=== PATIENT | female | born 1995 | race Caucasian/White ===

== ENCOUNTER 2018-09-03 20:51 | Emergency (ER) | payer OTHER ==
[2018-09-03 21:00] VITALS: BP 152/70
--- NOTE | 2018-09-03 22:12 | RADIOLOGY REPORT (SQ) ---
EXAM DESCRIPTION: XR NASAL BONES COMPLETED DATE/TME: 09/03/2018 00:00 CLINICAL HISTORY: 22 years, Female, Dog bumped pt in face/nose- nose pain Findings: Nasal bones appear intact. Nasal bony septum is not significantly deviated. Orbits appear intact. No air-fluid levels in the maxillary sinuses. IMPRESSION: No evidence for displaced nasal bone fracture.
--- NOTE | 2018-09-03 23:00 | ER Document Report ---
HPI - HPI Patient complains to provider of: Nose injury Pain Level: 3 Context: Patient is a 22-year-old female presenting to the emergency department complaining of being head butted by her 9-month-old [place]. Patient states immediately her nose began with a slight epistaxis and she had pain. Patient denies LOC or vomiting. Past medical history: None Medications: None Allergies: Sulfa Patient denies cigarette smoking, illicit drug use, admits to occasional EtOH use. Patient is declining any Tylenol or Motrin administration at this time. Patient states she can handle the pain. Past Medical History - General Information source: Patient - Social History Smoking Status: Never Smoker Lives with: Family Family History: Reviewed & Not Pertinent Vertical Provider Document - CONSTITUTIONAL Agree With Documented VS: Yes Notes: GENERAL: Alert, interacts well. No acute distress. HEAD: Normocephalic, atraumatic. EYES: Pupils equal, round, and reactive to light. Extraocular movements intact. ENT: Oral mucosa moist, tongue midline. Nares patent scant dried blood, no nasal septal hematoma, TM's intact, no hemotympanum erythema and swelling noted to nasal bridge. NECK: Full range of motion. Supple. Trachea midline. LUNGS: Clear to auscultation bilaterally, no wheezes, rales, or rhonchi. No respiratory distress. HEART: Regular rate and rhythm. No murmur ABDOMEN: Soft, non-tender. Non-distended. Bowel sounds present in all 4 quadrants. EXTREMITIES: Moves all 4 extremities spontaneously. No edema, normal radial and dorsalis pedis pulses bilaterally. No cyanosis. BACK: no cervical, thoracic, lumbar midline tenderness. No saddle anesthesia, normal distal neurovascular exam. NEUROLOGICAL: Alert and oriented x3. Normal speech. cranial nerves II through XII grossly intact PSYCH: Normal affect, normal mood. SKIN: Warm, dry, normal turgor. - INFECTION CONTROL TRAVEL OUTSIDE OF THE [place] IN LAST 30 DAYS: No Course - Re-evaluation Re-evalutation: 09/03/18 22:59 No septal hematoma noted bleeding has stopped at this time. Discussed with patient at bedside x-ray results. Discussed need to follow-up with primary care. Return precautions discussed - Vital Signs Vital signs: Temp Pulse Resp BP Pulse Ox 97.7 F 53 L 18 152/70 H 98 09/03/18 20:58 09/03/18 20:58 11/04/18 20:58 09/03/18 20:58 09/03/18 20:58 Discharge - Discharge Clinical Impression: Nose injury Qualifiers: Encounter type: initial encounter Qualified Code(s): S09.92XA - Unspecified injury of nose, initial encounter Condition: Stable Disposition: HOME, SELF-CARE Additional Instructions: Your x-ray results are negative for fracture. You should take Tylenol and Motrin at home for discomfort. Please return to the emergency room for any other worsening symptoms. Please follow-up with your primary care in the next 24-48 hours.
== END 2018-09-03 23:51 | disposition home or self-care (01) ==
LOC: ER 20:51
DX: S09.92XA Unspecified injury of nose, initial encounter (principal); W54.1XXA Struck by dog, initial encounter; Y92.009 Unspecified place in unspecified non-institutional (private) residence as the place of occurrence of the external cause
CPT/HCPCS: 70160; 99283